=== PATIENT | female | born 1995 | race Caucasian/White ===

== ENCOUNTER 2016-11-13 20:40 | Emergency (ER) | payer MEDICAID ==
[2016-11-13 21:39] VITALS: BP 124/78
== END 2016-11-13 21:39 | disposition home or self-care (01) ==
LOC: ED 20:40
DX: H10.32 Unspecified acute conjunctivitis, left eye (principal); R09.89 Other specified symptoms and signs involving the circulatory and respiratory systems; R06.7 Sneezing